=== PATIENT | male | born 1975 | race Hispanic/Latino ===

== ENCOUNTER 2022-12-08 16:35 | Observation (INO) | payer BC ==
[~2022-12-08 16:35] MED LIST: GASTROGRAFIN 30 ML BOT ONE; Iopamidol-370 76% 500 ML MDV (1 ML CHARGE) ONE
[2022-12-08] MEDS ORDERED: traMADol HCl 50 MG TAB PO PRN (18:41)
[2022-12-08] MEDS ORDERED: hydrALAZINE 20 MG/ML VIAL SLOW IVP PRN (18:41)
[2022-12-08] MEDS ORDERED: Morphine 4 MG/ML VIAL SLOW IVP PRN (18:41)
[2022-12-08] MEDS ORDERED: TETANUS, DIPHTHERIA TOX,ADULT (TDVAX) 0.5 ML VIAL IM ONE (18:41)
[2022-12-08] MEDS ORDERED: Ondansetron ODT 4 MG TAB PO PRN (18:41)
[2022-12-08] MEDS ORDERED: Ondansetron PF 4 MG/2 ML Vial IVP PRN (18:41)
[2022-12-08 19:38] VITALS: BMI 36.1
[2022-12-08] MEDS: Sodium Chloride 0.9% 1,000 ML IV SCH (20:06)
[2022-12-08] MEDS: Famotidine 20 MG TAB PO SCH (20:07)
[2022-12-08 23:50] LABS: Bacteria/HPF None Seen HPF (None Seen); Bilirubin Negative (Negative); Blood, Urine Negative (Negative); Clarity Clear (Clear); Glucose, Urine (Dipstick) Normal (Negative); Ketone, Urine Negative (Negative); Leukocyte Negative Leu/uL (Negative); Nitrite Negative (Negative); Protein, Urine (Dipstick) Negative (Neg-Trace); RBC/HPF 0-3 HPF (0-3); Squamous Epithelial 0-3 HPF (0-3); Urobilinogen Normal mg/dL (Less than 2); WBC/HPF 0-3 HPF (0-3); pH, Urine 5.5 (5.0-9.0)
[2022-12-09 00:01] LABS: Specific Gravity, Urine 1.047 (1.002-1.036)
[2022-12-09] MEDS: Sodium Chloride 0.9% 1,000 ML IV SCH ×2 (06:28→21:52)
[2022-12-09 08:47] LABS: ALT (SGPT) 25 U/L (8-55); AST (SGOT) 20 U/L (5-34); Albumin 3.8 g/dL (3.5-5.0); Alkaline Phosphatase 123 U/L (40-110); Anion Gap 11 mmol/L (10-20); BUN (Urea Nitrogen) 11 mg/dL (8.9-20.6); Bilirubin, Total 0.2 mg/dL (0.2-1.2); Calc. Creatinine Clearance 98 mL/min (70-130); Carbon Dioxide 23 mmol/L (22-29); Chloride 103 mmol/L (98-107); Estimated GFR 75; Globulin 3.3 g/dL (2.4-3.5); Glucose 87 mg/dL (70-105); Potassium 3.8 mmol/L (3.5-5.1); Protein, Total 7.1 g/dL (6.0-8.3); Sodium 133 mmol/L (136-145)
[2022-12-09 08:51] LABS: PTT 32.2 sec (22.9-36.1); Prothrombin Time 13.5 sec (12.0-14.7)
[2022-12-09 08:54] LABS: #Eosinphils 0.1 thou/uL (0.0-0.7); #Lymphocytes 1.4 thou/uL (1.20-3.40); #Monocytes 0.9 thou/uL (0.11-0.59); %Basophils 0.3 % (0.0-1.0); %Eosinophils 1.4 % (0.0-10.0); %Lymphocytes 19.3 % (21.0-51.0); %Monocytes 12.2 % (0.0-10.0); %Neutrophils 66.8 % (42.0-75.0); Hemoglobin 11.6 g/dL (14.0-18.0); Mean Corpuscular Hemoglobin 30.3 pg (27.0-31.0); Mean Corpuscular Volume 91.8 fl (78.0-98.0); Mean Platelet Volume 8.2 fL (7.4-10.4); Platelet Count 227 10x3/uL (130-400); RBC Distribution Width 14.2 % (11.5-14.5); Red Blood Cell (RBC) Count 3.83 mill/uL (4.70-6.10); White Blood Cell (WBC) Count 7.5 10x3/uL (4.8-10.8)
[2022-12-09] MEDS ORDERED: FLU VACC QS2022-23(6MO UP)/PF 60 MCG/0.5 ML SYRINGE IM ONE (09:00)
[2022-12-09] MEDS ORDERED: FENTANYL 50 MCG/ML 1 ML VIAL ONE ×4 (09:00→14:21)
[2022-12-09] MEDS ORDERED: Midazolam HCl 2 mg/2 ml Vial ONE ×2 (09:01→12:36)
[2022-12-09] MEDS: Famotidine 20 MG TAB PO SCH ×2 (10:07→20:12)
[2022-12-09] MEDS ORDERED: Sodium Bicarbonate 2.5 MEQ/5 ML VIAL ONE (10:53)
[2022-12-09] MEDS ORDERED: Lidocaine 1% PF 5 ML VIAL ONE (10:53)
[2022-12-09] MEDS ORDERED: Ondansetron PF 4 MG/2 ML Vial ONE ×3 (10:53→13:21)
[2022-12-09] MEDS ORDERED: Bupivacaine HCl 0.5%/Epinephrine 1:200,000/PF 30 ml Vial ONE (12:25)
[2022-12-09] MEDS ORDERED: Lidocaine 2% PF 5 ML VIAL ONE (12:26)
[2022-12-09] MEDS ORDERED: Propofol 500 MG/50 ML VIAL ONE (12:36)
[2022-12-09] MEDS ORDERED: Promethazine HCl 25 MG/ML VIAL IM PRN (13:57)
[2022-12-09] MEDS ORDERED: Ondansetron HCl/PF 4 MG/2 ML Vial IVP PRN (13:57)
[2022-12-09] MEDS ORDERED: HYDROcodone/Acetaminophen 5/325 mg Tablet PO PRN (14:07)
[2022-12-09] MEDS: HYDROcodone/Acetaminophen 5/325 mg Tablet PO PRN ×2 (17:59→23:18)
[2022-12-10] MEDS: HYDROcodone/Acetaminophen 5/325 mg Tablet PO PRN (04:50)
[2022-12-10] MEDS: Famotidine 20 MG TAB PO SCH (07:56)
[2022-12-10 11:57] VITALS: BP 141/92; TEMP 98.4
== END 2022-12-10 12:06 | disposition home or self-care (01) ==
LOC: CT 16:35 → T4-A 18:42
PROVIDERS: ADMIT Specialist; ATTEND Specialist
PROC: 0JH60WZ Insertion of Totally Implantable Vascular Access Device into Chest Subcutaneous Tissue and Fascia, Open Approach (ICD-10-PCS; principal; 2022-12-09)
PROC: 02HV33Z Insertion of Infusion Device into Superior Vena Cava, Percutaneous Approach (ICD-10-PCS; 2022-12-09)
PROC: B518ZZA Fluoroscopy of Superior Vena Cava, Guidance (ICD-10-PCS; 2022-12-09)
DX: C67.9 Malignant neoplasm of bladder, unspecified (principal); C77.2 Secondary and unspecified malignant neoplasm of intra-abdominal lymph nodes; C77.5 Secondary and unspecified malignant neoplasm of intrapelvic lymph nodes; C77.1 Secondary and unspecified malignant neoplasm of intrathoracic lymph nodes; N13.0 Hydronephrosis with ureteropelvic junction obstruction; N13.4 Hydroureter; K40.90 Unilateral inguinal hernia, without obstruction or gangrene, not specified as recurrent; I10 Essential (primary) hypertension; E78.5 Hyperlipidemia, unspecified; Z87.891 Personal history of nicotine dependence; Z79.899 Other long term (current) drug therapy
CPT/HCPCS: 36415; 50432; 71045; 74150; 74177; 77002; 80053; 81001; 85025; 85610; 85730; 87086; 90714; 93005; 93010; 96372; 96374; 96375; C1729; C1788; G0378; J1642; J1650; J1956; J2001; J2250; J2270; J2405; J2704; J3010; J7050; Q9963; Q9967

== ENCOUNTER 2022-12-14 06:57 | Day surgery (SDC) | payer BC ==
[2022-12-13 10:12] VITALS: BMI 37.2
[2022-12-14] MEDS ORDERED: Lidocaine 1% MPF 2 ML VIAL ONE (08:02)
[2022-12-14] MEDS ORDERED: Midazolam HCl 2 mg/2 ml Vial ONE (08:13)
[2022-12-14] MEDS ORDERED: fentaNYL PF 100 MCG/2 ML SYRINGE ONE ×2 (08:14→11:46)
[2022-12-14] MEDS ORDERED: SUGAMMADEX SODIUM 200 MG/2 ML VIAL ONE ×2 (08:14→13:08)
[2022-12-14] MEDS ORDERED: Bupivacaine HCl 0.5%/Epinephrine 1:200,000/PF 30 ml Vial ONE (08:20)
[2022-12-14] MEDS ORDERED: Bupivacaine/Epinephrine 0.25% 30 ML VIAL ONE (11:15)
[2022-12-14] MEDS ORDERED: PROPOFOL 200 MG/20 ML VIAL ONE (12:15)
[2022-12-14] MEDS ORDERED: Dexamethasone 20 MG/5 ML VIAL ONE (12:15)
[2022-12-14] MEDS ORDERED: Lidocaine 1% PF 5 ML VIAL ONE (12:15)
[2022-12-14] MEDS ORDERED: Esmolol 100 MG/10 ML VIAL ONE (12:15)
[2022-12-14] MEDS ORDERED: Rocuronium Bromide 10 MG/ML (10ML VIAL) ONE (12:15)
[2022-12-14] MEDS ORDERED: Ondansetron PF 4 MG/2 ML Vial ONE (12:15)
[2022-12-14] MEDS ORDERED: FENTANYL 50 MCG/ML 1 ML VIAL ONE (13:38)
[2022-12-14] MEDS ORDERED: HYDROcodone/Acetaminophen 5/325 mg Tablet ONE (14:51)
== END 2022-12-14 15:15 | disposition home or self-care (01) ==
LOC: SDC 06:57
PROVIDERS: ATTEND Thoracic Surgery (Cardiothoracic Vascular Surgery)
PROC: 0WBC4ZX Excision of Mediastinum, Percutaneous Endoscopic Approach, Diagnostic (ICD-10-PCS; principal; 2022-12-14)
DX: C77.1 Secondary and unspecified malignant neoplasm of intrathoracic lymph nodes (principal); C67.9 Malignant neoplasm of bladder, unspecified; I25.10 Atherosclerotic heart disease of native coronary artery without angina pectoris; I10 Essential (primary) hypertension; K21.9 Gastro-esophageal reflux disease without esophagitis; E78.5 Hyperlipidemia, unspecified; E66.3 Overweight; Z68.37 Body mass index [BMI] 37.0-37.9, adult; Z87.891 Personal history of nicotine dependence; Z91.018 Allergy to other foods; Z79.899 Other long term (current) drug therapy; Z79.2 Long term (current) use of antibiotics
CPT/HCPCS: 88305; 88331; 88341; 88342; J1100; J2250; J2405; J2704; J3010

== ENCOUNTER 2023-01-20 13:26 | Inpatient (IN) | payer BC ==
[~2023-01-20 13:26] MED LIST changes: -GASTROGRAFIN 30 ML BOT ONE; +Iopamidol 370 76% 100 ML VIAL ONE; -Iopamidol-370 76% 500 ML MDV (1 ML CHARGE) ONE
[2023-01-20] MEDS ORDERED: Cefepime 2 GM VIAL ONE (13:48)
[2023-01-20] MEDS ORDERED: Acetaminophen 500 MG TAB ONE (13:48)
[2023-01-20 13:51] LABS: Base Excess 2.5 mEq/L (-2.0 to +3.0); Calcium, Ionized (venous) 0.83 mmol/L (1.16-1.32); Chloride (VBG) 98 mmol/L (98-106); Hematocrit-VBG 39 % (42.0-52.0); Hemoglobin (Hb) 13.2 g/dL (13.1-17.2); Sodium 131.5 mmol/L (133-146)
[2023-01-20] MEDS ORDERED: Ondansetron PF 4 MG/2 ML Vial ONE (13:54)
[2023-01-20 13:59] LABS: Hemoglobin 12.1 g/dL (14.0-18.0); Mean Corpuscular HGB CONC 34.4 g/dL (32.0-36.0); Mean Corpuscular Hemoglobin 29.2 pg (27.0-31.0); Mean Platelet Volume 9.4 fL (7.4-10.4); Platelet Count 181 10x3/uL (130-400); RBC Distribution Width 15.4 % (11.5-14.5); Red Blood Cell (RBC) Count 4.14 mill/uL (4.70-6.10); White Blood Cell (WBC) Count 18.6 10x3/uL (4.8-10.8)
[2023-01-20 14:17] LABS: Band 5 % (5-11); Lymphocytes 8 % (21-51); MDiff Complete? YES; Monocytes 14 % (0-10); Neutrophil 73 % (42-75); Platelet Morphology Comment Appears Adequate; Polychromasia SLIGHT = 2-3 cells (100X) (0-2/hpf)
[2023-01-20 14:24] LABS: ALT (SGPT) 51 U/L (8-55); AST (SGOT) 39 U/L (5-34); Albumin 3.9 g/dL (3.5-5.0); Alkaline Phosphatase 106 U/L (40-110); Anion Gap 16 mmol/L (10-20); BUN (Urea Nitrogen) 10 mg/dL (8.9-20.6); Bilirubin, Total 0.8 mg/dL (0.2-1.2); Calc. Creatinine Clearance 0 mL/min (70-130); Calcium 8.7 mg/dL (7.8-10.44); Carbon Dioxide 21 mmol/L (22-29); Chloride 98 mmol/L (98-107); Estimated GFR 90; Globulin 3.6 g/dL (2.4-3.5); Glucose 144 mg/dL (70-105); Lipase 10 U/L (8-78); Potassium 3.3 mmol/L (3.5-5.1); Protein, Total 7.5 g/dL (6.0-8.3); Sodium 132 mmol/L (136-145)
[2023-01-20] MEDS ORDERED: Vancomycin 1 GM/200 ML (FROZEN) BAG ONE (14:42)
[2023-01-20] MEDS ORDERED: Ondansetron PF 4 MG/2 ML Vial IVP PRN (15:12)
[2023-01-20] MEDS ORDERED: Acetaminophen 325 MG TAB PO PRN (15:12)
[2023-01-20] MEDS ORDERED: Senokot S 8.6-50 MG TAB PO PRN (15:12)
[2023-01-20] MEDS ORDERED: Morphine 2 MG/ML VIAL SLOW IVP PRN (15:14)
[2023-01-20] MEDS ORDERED: Electrolyte Replacement Protocol FS SCH (15:15)
[2023-01-20 15:27] LABS: Bilirubin Negative (Negative); Blood, Urine 2+ (Negative); Clarity Clear (Clear); Glucose, Urine (Dipstick) Normal (Negative); Ketone, Urine Negative (Negative); Leukocyte 500 Leu/uL (Negative); Nitrite Negative (Negative); Protein, Urine (Dipstick) 100 mg/dL (Neg-Trace); Specific Gravity, Urine 1.049 (1.002-1.036); Squamous Epithelial None Seen HPF (0-3); Urobilinogen Normal mg/dL (Less than 2); pH, Urine 6.5 (5.0-9.0)
[2023-01-20 15:45] LABS: WBC/HPF 21-50 HPF (0-3)
[2023-01-20 15:46] LABS: Bacteria/HPF 1+ HPF (None Seen)
[2023-01-20 15:50] LABS: SARS-CoV-2 NAA Rapid Test Not Detected (NotDetected)
[2023-01-20] MEDS: HYDROcodone/Acetaminophen 5/325 mg Tablet PO PRN ×2 (16:53→23:38)
[2023-01-20 17:13] VITALS: BMI 34.3
[2023-01-20 17:16] LABS: Lactic Acid 1.6 mmol/L (0.5-2.2)
[2023-01-20] MEDS: NS 0.9% w/ 20 MEQ KCL 1,000 ML/1,000 ML BAG IV SCH (18:25)
[2023-01-20] MEDS ORDERED: VANCOMYCIN 1.25 GM/250 ML BAG 1.25 GM in Premix Bag 1 BAG IVPB SCH (18:30)
[2023-01-20] MEDS: diphenhydrAMINE 25 MG CAP PO PRN (18:38)
[2023-01-20] MEDS ORDERED: Vancomycin 1 GM in Premix Bag 1 BAG IVPB SCH (21:00)
[2023-01-20] MEDS: Atorvastatin Calcium 20 MG TAB PO SCH (21:17)
[2023-01-21] MEDS ORDERED: Cefepime 1 GM in Sodium Chloride 0.9% 100 ML IVPB SCH (02:00)
[2023-01-21] MEDS: VANCOMYCIN 1.25 GM/250 ML BAG 1.25 GM in Premix Bag 1 BAG IVPB SCH ×2 (02:49→14:52)
[2023-01-21 04:43] LABS: #Eosinphils 0.1 thou/uL (0.0-0.7); #Lymphocytes 1.6 thou/uL (1.20-3.40); #Monocytes 1.8 thou/uL (0.11-0.59); #Neutrophils 8.8 thou/uL (1.40-6.50); %Basophils 0.2 % (0.0-1.0); %Eosinophils 0.9 % (0.0-10.0); %Lymphocytes 13.1 % (21.0-51.0); %Monocytes 14.6 % (0.0-10.0); %Neutrophils 71.2 % (42.0-75.0); Mean Corpuscular HGB CONC 33.9 g/dL (32.0-36.0); Mean Corpuscular Hemoglobin 29.2 pg (27.0-31.0); Mean Corpuscular Volume 86.1 fl (78.0-98.0); Mean Platelet Volume 9.6 fL (7.4-10.4); Platelet Count 147 10x3/uL (130-400); RBC Distribution Width 15.2 % (11.5-14.5); Red Blood Cell (RBC) Count 3.76 mill/uL (4.70-6.10); White Blood Cell (WBC) Count 12.3 10x3/uL (4.8-10.8)
[2023-01-21 05:05] LABS: Anion Gap 9 mmol/L (10-20); BUN (Urea Nitrogen) 9 mg/dL (8.9-20.6); Calc. Creatinine Clearance 137 mL/min (70-130); Calcium 8.4 mg/dL (7.8-10.44); Carbon Dioxide 22 mmol/L (22-29); Chloride 107 mmol/L (98-107); Estimated GFR 108; Glucose 125 mg/dL (70-105); Potassium 3.3 mmol/L (3.5-5.1); Sodium 135 mmol/L (136-145)
[2023-01-21] MEDS: NS 0.9% w/ 20 MEQ KCL 1,000 ML/1,000 ML BAG IV SCH (05:41)
[2023-01-21] MEDS ORDERED: Potassium Chloride 20 MEQ TAB PO SCH ×2 (08:00→17:45)
[2023-01-21] MEDS ORDERED: Morphine 2 MG/ML VIAL SLOW IVP PRN (11:05)
[2023-01-21] MEDS ORDERED: HYDROcodone/Acetaminophen 5/325 mg Tablet PO SCH (11:15)
[2023-01-21] MEDS: Cefepime 2 GM in Sodium Chloride 0.9% 100 ML IVPB SCH (14:17)
[2023-01-21 16:50] LABS: Potassium 3.3 mmol/L (3.5-5.1)
[2023-01-21] MEDS: HYDROcodone/Acetaminophen 5/325 mg Tablet PO PRN (21:37)
[2023-01-21] MEDS: diphenhydrAMINE 25 MG CAP PO PRN (21:41)
[2023-01-21] MEDS: Atorvastatin Calcium 20 MG TAB PO SCH (21:41)
[2023-01-22 02:19] LABS: #Eosinphils 0.3 thou/uL (0.0-0.7); #Lymphocytes 1.3 thou/uL (1.20-3.40); #Monocytes 0.8 thou/uL (0.11-0.59); #Neutrophils 4.1 thou/uL (1.40-6.50); %Basophils 0.4 % (0.0-1.0); %Eosinophils 4.6 % (0.0-10.0); %Lymphocytes 19.5 % (21.0-51.0); %Monocytes 12.2 % (0.0-10.0); %Neutrophils 63.3 % (42.0-75.0); Hemoglobin 10.6 g/dL (14.0-18.0); Mean Corpuscular HGB CONC 32.8 g/dL (32.0-36.0); Mean Corpuscular Hemoglobin 28.1 pg (27.0-31.0); Mean Corpuscular Volume 85.7 fl (78.0-98.0); Mean Platelet Volume 9.5 fL (7.4-10.4); Platelet Count 166 10x3/uL (130-400); Red Blood Cell (RBC) Count 3.78 mill/uL (4.70-6.10); White Blood Cell (WBC) Count 6.5 10x3/uL (4.8-10.8)
[2023-01-22] MEDS: Cefepime 2 GM in Sodium Chloride 0.9% 100 ML IVPB SCH (02:26)
[2023-01-22 02:32] LABS: Vancomycin, Trough 6.5 ug/mL
[2023-01-22 02:40] LABS: Anion Gap 13 mmol/L (10-20); BUN (Urea Nitrogen) 7 mg/dL (8.9-20.6); Calc. Creatinine Clearance 125 mL/min (70-130); Calcium 8.6 mg/dL (7.8-10.44); Carbon Dioxide 19 mmol/L (22-29); Chloride 108 mmol/L (98-107); Estimated GFR 105; Glucose 159 mg/dL (70-105); Potassium 3.5 mmol/L (3.5-5.1); Sodium 136 mmol/L (136-145)
[2023-01-22] MEDS: VANCOMYCIN 1.25 GM/250 ML BAG 1.25 GM in Premix Bag 1 BAG IVPB SCH ×3 (03:03→20:22)
[2023-01-22] MEDS ORDERED: Potassium Chloride 20 MEQ TAB PO SCH (08:00)
[2023-01-22] MEDS: HYDROcodone/Acetaminophen 5/325 mg Tablet PO PRN (11:33)
[2023-01-22] MEDS ORDERED: diphenhydrAMINE 25 MG CAP PO PRN (15:00)
[2023-01-22] MEDS: Atorvastatin Calcium 20 MG TAB PO SCH (20:21)
[2023-01-23 02:22] LABS: Vancomycin, Trough 19.8 ug/mL
[2023-01-23] MEDS ORDERED: VANCOMYCIN 1.25 GM/250 ML BAG 1.25 GM in Premix Bag 1 BAG IVPB SCH (03:00)
[2023-01-23 03:04] LABS: Chloride 105 mmol/L (98-107); Sodium 136 mmol/L (136-145)
[2023-01-23 03:05] LABS: Calcium 9.3 mg/dL (7.8-10.44); Glucose 113 mg/dL (70-105); Potassium 3.5 mmol/L (3.5-5.1)
[2023-01-23 03:07] LABS: Anion Gap 15 mmol/L (10-20); Carbon Dioxide 20 mmol/L (22-29)
[2023-01-23 03:09] LABS: Calc. Creatinine Clearance 129 mL/min (70-130); Estimated GFR 106
[2023-01-23 03:10] LABS: BUN (Urea Nitrogen) 7 mg/dL (8.9-20.6)
[2023-01-23] MEDS: VANCOMYCIN 1.25 GM/250 ML BAG 1.25 GM in Premix Bag 1 BAG IVPB SCH ×2 (03:43→12:07)
[2023-01-23] MEDS ORDERED: Potassium Chloride 20 MEQ TAB PO SCH (08:00)
[2023-01-23 13:23] VITALS: BP 130/86; TEMP 98.6
== END 2023-01-23 15:18 | disposition home or self-care (01) | DRG 698 ==
LOC: ERS 13:26 → 2NO 15:10
PROVIDERS: ADMIT Family Medicine; ATTEND Family Medicine
DX: T83.593A Infection and inflammatory reaction due to other urinary stents, initial encounter (principal); A41.81 Sepsis due to Enterococcus; N12 Tubulo-interstitial nephritis, not specified as acute or chronic; C79.9 Secondary malignant neoplasm of unspecified site; Z20.822 Contact with and (suspected) exposure to COVID-19; C67.9 Malignant neoplasm of bladder, unspecified; I10 Essential (primary) hypertension; E78.5 Hyperlipidemia, unspecified; K21.9 Gastro-esophageal reflux disease without esophagitis; E87.6 Hypokalemia; F17.210 Nicotine dependence, cigarettes, uncomplicated; Y83.1 Surgical operation with implant of artificial internal device as the cause of abnormal reaction of the patient, or of later complication, without mention of misadventure at the time of the procedure; Z91.018 Allergy to other foods; Z80.51 Family history of malignant neoplasm of kidney; Z79.899 Other long term (current) drug therapy
CPT/HCPCS: 36415; 71045; 74177; 80048; 80053; 80202; 81003; 81015; 82805; 83605; 83690; 84484; 85025; 87040; 87077; 87086; 87149; 87186; 93005; J0692; J1642; J1650; J2405; J3370; J3370-JW; J3480; J3490; Q9967; U0002

== ENCOUNTER 2023-05-15 13:50 | Inpatient (IN) | payer BC ==
[~2023-05-15 13:50] MED LIST changes: -Iopamidol 370 76% 100 ML VIAL ONE; +Iopamidol-370 76% 500 ML MDV (1 ML CHARGE) ONE
[2023-05-15 14:28] LABS: #Eosinphils 0.1 thou/uL (0.0-0.7); #Monocytes 0.5 thou/uL (0.11-0.59); #Neutrophils 1.7 thou/uL (1.40-6.50); %Basophils 1.1 % (0.0-1.0); %Eosinophils 1.9 % (0.0-10.0); %Lymphocytes 38.5 % (21.0-51.0); %Monocytes 12.2 % (0.0-10.0); %Neutrophils 46.3 % (42.0-75.0); Hematocrit 37.4 % (42.0-52.0); Hemoglobin 12.8 g/dL (14.0-18.0); Mean Corpuscular HGB CONC 34.2 g/dL (32.0-36.0); Mean Corpuscular Hemoglobin 29.1 pg (27.0-31.0); Mean Platelet Volume 10.8 fL (7.4-10.4); Platelet Count 284 10x3/uL (130-400); RBC Distribution Width 15.3 % (11.5-14.5); White Blood Cell (WBC) Count 3.7 10x3/uL (4.8-10.8)
[2023-05-15 14:51] LABS: ALT (SGPT) 21 U/L (8-55); AST (SGOT) 28 U/L (5-34); Alkaline Phosphatase 162 U/L (40-110); Anion Gap 11 mmol/L (10-20); BUN (Urea Nitrogen) 11 mg/dL (8.9-20.6); Bilirubin, Total 0.3 mg/dL (0.2-1.2); Calc. Creatinine Clearance 0 mL/min (70-130); Calcium 9.1 mg/dL (7.8-10.44); Carbon Dioxide 24 mmol/L (22-29); Chloride 105 mmol/L (98-107); Estimated GFR 107; Globulin 3.9 g/dL (2.4-3.5); Glucose 138 mg/dL (70-105); Potassium 3.4 mmol/L (3.5-5.1); Protein, Total 7.9 g/dL (6.0-8.3); Sodium 137 mmol/L (136-145)
[2023-05-15 14:55] LABS: Troponin I Less than 0.010 ng/mL (< 0.028)
[2023-05-15 15:41] LABS: INR-International Normal Ratio 0.9; PTT 30.2 sec (22.9-36.1); Prothrombin Time 12.6 sec (12.0-14.7)
[2023-05-15] MEDS ORDERED: Aspirin Chewable 81 MG TAB ONE (16:14)
[2023-05-15] MEDS ORDERED: Potassium Chloride 20 MEQ TAB ONE (16:14)
[2023-05-15 16:39] LABS: Bilirubin Negative (Negative); Blood, Urine 3+ (Negative); CAUTI Indications for Culture Dysuria,urgency,freq; Clarity Clear (Clear); Glucose, Urine (Dipstick) Normal (Negative); Ketone, Urine Negative (Negative); Leukocyte 250 Leu/uL (Negative); Nitrite Negative (Negative); Protein, Urine (Dipstick) 70 mg/dL (Neg-Trace); RBC/HPF Greater than 50 HPF (0-3); Specific Gravity, Urine 1.022 (1.002-1.036); Squamous Epithelial 0-3 HPF (0-3); Urobilinogen Normal mg/dL (Less than 2); WBC/HPF 21-50 HPF (0-3); pH, Urine 5.5 (5.0-9.0)
[2023-05-15 16:43] LABS: Bacteria/HPF 1+ HPF (None Seen); Urine Culture Reflex Yes Yes
[2023-05-15] MEDS ORDERED: Labetalol HCl 100 MG/20 ML VIAL SLOW IVP PRN (17:46)
[2023-05-15] MEDS ORDERED: hydrALAZINE 20 MG/ML VIAL SLOW IVP PRN (17:46)
[2023-05-15] MEDS ORDERED: Acetaminophen 325 MG TAB PO PRN (17:46)
[2023-05-15] MEDS ORDERED: Ondansetron ODT 4 MG TAB PO PRN (17:46)
[2023-05-15] MEDS ORDERED: Ondansetron PF 4 MG/2 ML Vial IVP PRN (17:46)
[2023-05-15] MEDS ORDERED: HYDROcodone/Acetaminophen 5/325 mg Tablet PO PRN (17:46)
[2023-05-15 18:00] VITALS: BMI 32.8
[2023-05-15] MEDS ORDERED: Potassium Chloride 20 MEQ TAB PO SCH (18:45)
[2023-05-15] MEDS: Heparin 5,000 UNITS/ML VIAL SC SCH (23:11)
[2023-05-15] MEDS: Famotidine 20 MG TAB PO SCH (23:12)
[2023-05-15] MEDS: Atorvastatin Calcium 40 MG TAB PO SCH (23:12)
[2023-05-16] MEDS: Heparin 5,000 UNITS/ML VIAL SC SCH ×2 (09:22→21:26)
[2023-05-16] MEDS: Famotidine 20 MG TAB PO SCH ×2 (09:22→21:25)
[2023-05-16] MEDS: Aspirin 81 mg Enteric Coated Tablet PO SCH (09:22)
[2023-05-16] MEDS ORDERED: Iopamidol-370 76% 500 ML MDV (1 ML CHARGE) ONE (09:51)
[2023-05-16 11:59] LABS: #Basophils 0.1 thou/uL (0.0-0.2); #Monocytes 0.5 thou/uL (0.11-0.59); #Neutrophils 1.7 thou/uL (1.40-6.50); %Basophils 1.2 % (0.0-1.0); %Eosinophils 0.9 % (0.0-10.0); %Lymphocytes 47.1 % (21.0-51.0); %Monocytes 11.5 % (0.0-10.0); %Neutrophils 39.3 % (42.0-75.0); Hematocrit 42.4 % (42.0-52.0); Hemoglobin 13.9 g/dL (14.0-18.0); Mean Corpuscular HGB CONC 32.8 g/dL (32.0-36.0); Mean Corpuscular Hemoglobin 28.4 pg (27.0-31.0); Mean Corpuscular Volume 86.5 fl (78.0-98.0); Mean Platelet Volume 10.4 fL (7.4-10.4); Platelet Count 277 10x3/uL (130-400); RBC Distribution Width 15.5 % (11.5-14.5); White Blood Cell (WBC) Count 4.3 10x3/uL (4.8-10.8)
[2023-05-16 13:39] LABS: Anion Gap 14 mmol/L (10-20); BUN (Urea Nitrogen) 10 mg/dL (8.9-20.6); Calc. Creatinine Clearance 128 mL/min (70-130); Calcium 9.5 mg/dL (7.8-10.44); Carbon Dioxide 20 mmol/L (22-29); Cardiac Risk 3.7 (Less than 4.5); Chloride 108 mmol/L (98-107); Cholesterol 160 mg/dl (< 200 Desired); Estimated GFR 107; Glucose 75 mg/dL (70-105); HDL Cholesterol 43 mg/dL (>60 Neg Risk); LDL Cholesterol, Calculated 96 mg/dL; Potassium 3.8 mmol/L (3.5-5.1); Triglycerides 105 mg/dL (Less than 150)
[2023-05-16 13:46] LABS: Sodium 138 mmol/L (136-145)
[2023-05-16] MEDS: Atorvastatin Calcium 40 MG TAB PO SCH (21:25)
[2023-05-16] MEDS: Dexamethasone 4 MG TAB PO SCH (21:25)
[2023-05-17] MEDS: Dexamethasone 4 MG TAB PO SCH ×2 (08:06→21:09)
[2023-05-17] MEDS: Aspirin 81 mg Enteric Coated Tablet PO SCH (08:06)
[2023-05-17] MEDS: Famotidine 20 MG TAB PO SCH ×2 (08:06→21:09)
[2023-05-17] MEDS: Heparin 5,000 UNITS/ML VIAL SC SCH (08:11)
[2023-05-17] MEDS: AMPicillin 1 GM in Sodium Chloride 0.9% 100 ML IVPB SCH ×3 (12:24→23:16)
[2023-05-17] MEDS: Phenazopyridine HCl 100 MG TAB PO SCH ×2 (15:07→21:09)
[2023-05-17] MEDS ORDERED: Amlodipine 10 MG TAB PO SCH (21:00)
[2023-05-17] MEDS ORDERED: traZODone HCl 50 MG TAB PO SCH (21:00)
[2023-05-17] MEDS ORDERED: Amlodipine 5 MG TAB PO SCH (21:00)
[2023-05-17] MEDS ORDERED: Non-Formulary Item 1 EACH (Trazodone Hcl [Trazodone Hcl] 100 MG Tablet) PO SCH (21:00)
[2023-05-17] MEDS: Atorvastatin Calcium 40 MG TAB PO SCH (21:09)
[2023-05-18] MEDS: AMPicillin 1 GM in Sodium Chloride 0.9% 100 ML IVPB SCH ×3 (05:08→18:41)
[2023-05-18] MEDS: Famotidine 20 MG TAB PO SCH (08:49)
[2023-05-18] MEDS: Dexamethasone 4 MG TAB PO SCH (08:49)
[2023-05-18] MEDS: Aspirin 81 mg Enteric Coated Tablet PO SCH (08:49)
[2023-05-18] MEDS: Phenazopyridine HCl 100 MG TAB PO SCH ×2 (08:49→13:01)
[2023-05-18 19:57] VITALS: BP 128/78; TEMP 97.9
== END 2023-05-18 19:57 | disposition home or self-care (01) | DRG 55 ==
LOC: ERS 13:50 → ERHOLD 16:42 → 2SE 22:17 → OBSVTOIN 05-17 10:16 → SURG B 05-17 16:50
PROVIDERS: ADMIT Hospitalist; ATTEND Family Medicine
DX: C79.31 Secondary malignant neoplasm of brain (principal); N39.0 Urinary tract infection, site not specified; C77.1 Secondary and unspecified malignant neoplasm of intrathoracic lymph nodes; C79.51 Secondary malignant neoplasm of bone; C79.89 Secondary malignant neoplasm of other specified sites; C67.9 Malignant neoplasm of bladder, unspecified; I10 Essential (primary) hypertension; D63.0 Anemia in neoplastic disease; Z79.899 Other long term (current) drug therapy; Z91.018 Allergy to other foods; Z85.528 Personal history of other malignant neoplasm of kidney; Z96.0 Presence of urogenital implants; Z87.891 Personal history of nicotine dependence; E78.00 Pure hypercholesterolemia, unspecified
CPT/HCPCS: 36415; 70450; 70496; 70498; 70551; 70552; 71045; 71260; 74177; 77014; 77334; 80048; 80053; 80061; 81001; 84484; 85025; 85610; 85730; 87086; 93005; 93306; J0290; J1644; J3490; J8540; Q9967

== ENCOUNTER 2023-06-06 08:45 | Outpatient (CLI) | payer BC | END 2023-06-06 08:46 | disposition home or self-care (01) | LOC: PET 08:45 | PROVIDERS: ATTEND Internal Medicine Hematology & Oncology | DX: C67.2 Malignant neoplasm of lateral wall of bladder (principal) | CPT/HCPCS: 78815; A9552 ==

== ENCOUNTER 2023-10-10 12:39 | Inpatient (IN) | payer SELFPAY ==
[2023-10-10 13:26] LABS: #Monocytes 0.3 thou/uL (0.11-0.59); %Basophils 0.4 % (0.0-1.0); %Eosinophils 0.4 % (0.0-10.0); %Lymphocytes 24.2 % (21.0-51.0); %Monocytes 7.1 % (0.0-10.0); %Neutrophils 67.7 % (42.0-75.0); Hematocrit 40.7 % (42.0-52.0); Hemoglobin 14.5 g/dL (14.0-18.0); Mean Corpuscular HGB CONC 35.6 g/dL (32.0-36.0); Mean Corpuscular Hemoglobin 29.8 pg (27.0-31.0); Mean Corpuscular Volume 83.7 fl (78.0-98.0); Mean Platelet Volume 10.1 fL (7.4-10.4); Platelet Count 274 10x3/uL (130-400); RBC Distribution Width 14.6 % (11.5-14.5); Red Blood Cell (RBC) Count 4.86 mill/uL (4.70-6.10); White Blood Cell (WBC) Count 4.5 10x3/uL (4.8-10.8)
[2023-10-10 13:48] LABS: ALT (SGPT) 54 U/L (8-55); AST (SGOT) 28 U/L (5-34); Albumin 4.7 g/dL (3.5-5.0); Alkaline Phosphatase 125 U/L (40-110); Anion Gap 11 mmol/L (10-20); BUN (Urea Nitrogen) 15 mg/dL (8.9-20.6); Bilirubin, Total 0.7 mg/dL (0.2-1.2); Calc. Creatinine Clearance 0 mL/min (70-130); Calcium 9.5 mg/dL (7.8-10.44); Carbon Dioxide 23 mmol/L (22-29); Chloride 104 mmol/L (98-107); Estimated GFR 110; Glucose 110 mg/dL (70-105); Lipase 15 U/L (8-78); Potassium 3.4 mmol/L (3.5-5.1); Protein, Total 7.7 g/dL (6.0-8.3); Sodium 135 mmol/L (136-145)
[2023-10-10 13:51] LABS: Troponin I Less than 0.010 ng/mL (< 0.028)
[2023-10-10 14:07] LABS: CRP (Inflammatory) Less than 0.50 mg/dL (= or < 0.5); Magnesium 2.1 mg/dL (1.6-2.6)
[2023-10-10] MEDS ORDERED: Morphine 4 MG/ML VIAL ONE (14:39)
[2023-10-10] MEDS ORDERED: Ondansetron PF 4 MG/2 ML Vial ONE (14:39)
[2023-10-10 16:50] LABS: Bacteria/HPF None Seen HPF (None Seen); Bilirubin Negative (Negative); Blood, Urine 2+ (Negative); CAUTI Indications for Culture Pelvic or flank pain; Clarity Clear (Clear); Glucose, Urine (Dipstick) Normal (Negative); Ketone, Urine Negative (Negative); Leukocyte 25 Leu/uL (Negative); Nitrite Negative (Negative); Protein, Urine (Dipstick) 10 mg/dL (Neg-Trace); RBC/HPF 21-50 HPF (0-3); Specific Gravity, Urine 1.033 (1.002-1.036); Squamous Epithelial 0-3 HPF (0-3); Urobilinogen Normal mg/dL (Less than 2); pH, Urine 6.5 (5.0-9.0)
[2023-10-10 16:52] LABS: Urine Culture Reflex No No
[2023-10-10] MEDS ORDERED: Ondansetron PF 4 MG/2 ML Vial IVP PRN (19:02)
[2023-10-10] MEDS ORDERED: Acetaminophen 325 MG TAB PO PRN (19:02)
[2023-10-10] MEDS ORDERED: Acetaminophen 650 MG Suppository PR PRN (19:02)
[2023-10-10] MEDS ORDERED: Ondansetron ODT 4 MG TAB PO PRN (19:02)
[2023-10-10 19:45] LABS: Magnesium 2.3 mg/dL (1.6-2.6)
[2023-10-10 21:52] VITALS: BMI 29.4
[2023-10-10] MEDS ORDERED: Morphine 2 MG/ML VIAL SLOW IVP PRN (22:07)
[2023-10-10] MEDS: Senokot S 8.6-50 MG TAB PO SCH (23:01)
[2023-10-10] MEDS: HYDROcodone/Acetaminophen 5/325 mg Tablet PO PRN (23:01)
[2023-10-10] MEDS: Polyethylene Glycol 3350 17 GM Packet PO SCH (23:01)
[2023-10-10] MEDS: Famotidine 20 MG TAB PO SCH (23:01)
[2023-10-11] MEDS ORDERED: Electrolyte Replacement Protocol 1 EACH FS SCH (01:00)
[2023-10-11] MEDS ORDERED: Potassium Chloride 20 MEQ TAB PO SCH ×3 (01:15→09:00)
[2023-10-11 04:01] LABS: Hematocrit 38.2 % (42.0-52.0); Hemoglobin 13.4 g/dL (14.0-18.0); Mean Corpuscular Hemoglobin 29.5 pg (27.0-31.0); Mean Corpuscular Volume 84.1 fl (78.0-98.0); Red Blood Cell (RBC) Count 4.54 mill/uL (4.70-6.10)
[2023-10-11 04:02] LABS: #Monocytes 0.3 thou/uL (0.11-0.59); #Neutrophils 2.5 thou/uL (1.40-6.50); %Basophils 0.5 % (0.0-1.0); %Eosinophils 0.8 % (0.0-10.0); %Lymphocytes 28.5 % (21.0-51.0); %Monocytes 7.8 % (0.0-10.0); %Neutrophils 62.1 % (42.0-75.0); Mean Corpuscular HGB CONC 35.1 g/dL (32.0-36.0); Mean Platelet Volume 10.1 fL (7.4-10.4); Platelet Count 232 10x3/uL (130-400); RBC Distribution Width 14.6 % (11.5-14.5)
[2023-10-11 04:26] LABS: Anion Gap 14 mmol/L (10-20); BUN (Urea Nitrogen) 12 mg/dL (8.9-20.6); Calc. Creatinine Clearance 129 mL/min (70-130); Calcium 9.3 mg/dL (7.8-10.44); Carbon Dioxide 22 mmol/L (22-29); Chloride 105 mmol/L (98-107); Estimated GFR 111; Glucose 91 mg/dL (70-105); Potassium 3.3 mmol/L (3.5-5.1); Sodium 138 mmol/L (136-145)
[2023-10-11] MEDS ORDERED: Electrolyte Replacement Protocol FS PRN (08:00)
[2023-10-11] MEDS: Polyethylene Glycol 3350 17 GM Packet PO SCH ×2 (09:40→20:46)
[2023-10-11] MEDS: Senokot S 8.6-50 MG TAB PO SCH ×2 (09:40→20:46)
[2023-10-11] MEDS: Famotidine 20 MG TAB PO SCH (09:40)
[2023-10-11] MEDS ORDERED: Iopamidol-370 76% 500 ML MDV (1 ML CHARGE) ONE (09:45)
[2023-10-11] MEDS ORDERED: Calcium Carbonate 500 MG ChewTAB PO PRN (13:02)
[2023-10-11 15:45] LABS: Potassium 3.8 mmol/L (3.5-5.1)
[2023-10-11] MEDS: Dexamethasone 4 mg/ml Vial SLOW IVP SCH (20:46)
[2023-10-11] MEDS: Mirtazapine 15 MG TAB PO SCH (20:46)
[2023-10-11] MEDS: traZODone HCl 50 MG TAB PO SCH (20:46)
[2023-10-12 05:40] LABS: Anion Gap 11 mmol/L (10-20); BUN (Urea Nitrogen) 16 mg/dL (8.9-20.6); Calc. Creatinine Clearance 122 mL/min (70-130); Calcium 9.4 mg/dL (7.8-10.44); Carbon Dioxide 22 mmol/L (22-29); Chloride 104 mmol/L (98-107); Estimated GFR 109; Glucose 125 mg/dL (70-105); Potassium 3.7 mmol/L (3.5-5.1); Sodium 133 mmol/L (136-145)
[2023-10-12] MEDS: Senokot S 8.6-50 MG TAB PO SCH (11:03)
[2023-10-12] MEDS: Tamsulosin HCl 0.4 MG CAP PO SCH (11:03)
[2023-10-12] MEDS: Dexamethasone 4 mg/ml Vial SLOW IVP SCH ×2 (11:03→21:07)
[2023-10-12] MEDS: Polyethylene Glycol 3350 17 GM Packet PO SCH (11:03)
[2023-10-12] MEDS: Famotidine/PF 20 mg/2ml Vial SLOW IVP SCH (11:03)
[2023-10-12] MEDS: HYDROcodone/Acetaminophen 5/325 mg Tablet PO PRN (11:14)
[2023-10-12] MEDS ORDERED: Polyethylene Glycol 3350 17 GM Packet PO PRN (13:20)
[2023-10-12] MEDS ORDERED: Senokot S 8.6-50 MG TAB PO PRN (13:20)
[2023-10-12] MEDS: traZODone HCl 50 MG TAB PO SCH (21:07)
[2023-10-12] MEDS: Mirtazapine 15 MG TAB PO SCH (21:07)
[2023-10-13] MEDS: HYDROcodone/Acetaminophen 5/325 mg Tablet PO PRN (06:15)
[2023-10-13] MEDS: Tamsulosin HCl 0.4 MG CAP PO SCH (08:42)
[2023-10-13] MEDS: Famotidine/PF 20 mg/2ml Vial SLOW IVP SCH (08:42)
[2023-10-13] MEDS: Dexamethasone 4 mg/ml Vial SLOW IVP SCH (08:42)
[2023-10-13 16:17] VITALS: BP 98/62; TEMP 97.3
== END 2023-10-13 16:50 | disposition home or self-care (01) | DRG 55 ==
LOC: ERS 12:39 → INTOOBSV 18:20 → MSONC 18:20 → OBSVTOIN 10-11 10:55
PROVIDERS: ADMIT Student in an Organized Health Care Education/Training Program; ATTEND Family Medicine
DX: C79.31 Secondary malignant neoplasm of brain (principal); C79.49 Secondary malignant neoplasm of other parts of nervous system; E87.1 Hypo-osmolality and hyponatremia; N13.30 Unspecified hydronephrosis; C67.9 Malignant neoplasm of bladder, unspecified; E87.6 Hypokalemia; I10 Essential (primary) hypertension; K59.00 Constipation, unspecified; K21.9 Gastro-esophageal reflux disease without esophagitis; Z98.890 Other specified postprocedural states; Z87.891 Personal history of nicotine dependence; Z79.899 Other long term (current) drug therapy; Z88.8 Allergy status to other drugs, medicaments and biological substances; M54.50 Low back pain, unspecified; G47.00 Insomnia, unspecified; D72.829 Elevated white blood cell count, unspecified; R27.0 Ataxia, unspecified; E78.00 Pure hypercholesterolemia, unspecified; Z51.5 Encounter for palliative care
CPT/HCPCS: 36415; 70450; 70470; 71045; 71260; 72158; 74177; 77014; 77290; 77295; 77300; 77334; 77412; 77417; 80048; 80053; 81001; 83690; 83735; 84443; 84484; 85025; 86140; 93005; 96361; 96374; 96375; J1100; J2270; J2272; J2405; Q9967; S0028